=== PATIENT | male | born 1955 | race Caucasian/White ===

== ENCOUNTER → 2016-12-13 | Outpatient (CLI) | payer OTHER, BC ==
[~2016-12-13] MED LIST: ASCO100061 PO; ASPI325T4 PO; ATOR-24 PO; BISA1TAB15 PO; CLR10 PO; CYAN100020 PO; DOCU100C31 PO; FENO1TAB24 PO; FLUO20CA35 PO; GLUCTAB7 BT; INSUINJ12 SC; LOSA1TAB PO; METF1000 PO; METO-551 PO; MULTTAB58 PO; NVLGI SC; OMEG-112 PO; PROB1CAP54 PO; TRIA37.5 PO; VITA400C15 PO
[2016-12-14 06:01] LABS: ESTIMATED AVERAGE GLUCOSE 140 mg/dl; HA1C FLAG Normal (Normal)
== END | disposition home or self-care (01) ==
LOC: C.LABBFT 15:18
PROVIDERS: ATTEND Nurse Practitioner Family
DX: E11.9 Type 2 diabetes mellitus without complications (principal)

== ENCOUNTER → 2017-02-08 | Outpatient (CLI) | payer OTHER, BC ==
[2017-02-08 16:50] LABS: ALT/SGPT 28 U/L (12-78); AST/SGOT 15 U/L (15-37); BLOOD UREA NITROGEN 16 mg/dl (7-18); CALCIUM 8.9 mg/dl (8.5-10.1); CARBON DIOXIDE 29 mmol/L (21-32); CHLORIDE 102 mmol/L (98-107); CHOLESTEROL 107 mg/dl (0-200); GLUCOSE 93 mg/dl (70-99); POTASSIUM 3.8 mmol/L (3.5-5.1); SODIUM 139 mmol/L (136-145)
[2017-02-08 16:54] LABS: ALB/GLOB RATIO 1.1 (0.9-2); ALKALINE PHOSPHATASE 66 U/L (45-117); CHOLESTEROL/HDL RATIO 3.1; HDL CHOLESTEROL 35 mg/dl; LDL CHOLESTEROL CALCULATED 32 mg/dl; PROSTATE SPECIFIC ANTIGEN 0.194 ng/ml (0.000-4.000); TRIGLYCERIDES 201 mg/dl (0-150); VERY LOW DENSITY LIPOPROT CALC 40 mg/dl
[2017-02-08 17:24] LABS: RATIO 64.7 mcg/mg (0-30.0)
== END | disposition home or self-care (01) ==
LOC: C.LAB1850 15:28
PROVIDERS: ATTEND Internal Medicine
DX: Z00.00 Encounter for general adult medical examination without abnormal findings (principal); Z11.59 Encounter for screening for other viral diseases; E11.9 Type 2 diabetes mellitus without complications; Z12.5 Encounter for screening for malignant neoplasm of prostate

== ENCOUNTER → 2017-03-26 | Outpatient (CLI) | payer OTHER, BC ==
[2017-03-26 18:01] LABS: RATIO 119.4 mcg/mg (0-30.0)
[2017-03-26 18:08] LABS: BLOOD UREA NITROGEN 20 mg/dl (7-18); BUN/CREATININE RATIO 19.6 (10-20); CALCIUM 9.1 mg/dl (8.5-10.1); CARBON DIOXIDE 32 mmol/L (21-32); CHLORIDE 102 mmol/L (98-107); GLUCOSE 111 mg/dl (70-99); POTASSIUM 4.6 mmol/L (3.5-5.1); SODIUM 139 mmol/L (136-145)
[2017-03-27 06:09] LABS: ESTIMATED AVERAGE GLUCOSE 126 mg/dl; HA1C FLAG Normal (Normal)
== END | disposition home or self-care (01) ==
LOC: C.LABPBG 14:25
PROVIDERS: ATTEND Nurse Practitioner Family
DX: E11.9 Type 2 diabetes mellitus without complications (principal); R80.9 Proteinuria, unspecified

== ENCOUNTER → 2018-02-11 | Outpatient (CLI) | payer OTHER, BC ==
[~2018-02-11] MED LIST changes: +FENO145T24 PO; -FENO1TAB24 PO
--- NOTE | 2018-02-11 11:33 | DIAGNOSTIC IMAGING REPORT ---
R CLAVICLE CLINICAL HISTORY: Right clavicular pain. COMPARISON: None FINDINGS: No acute fracture is identified. There is apparent mild widening of the right acromioclavicular joint interval which measures 1.1 cm. This is a nonspecific finding. There is moderate arthritis of the right acromioclavicular and glenohumeral joints with subacromial spurring. IMPRESSION: 1. No acute fracture. 2. 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 3. Mild widening of the right AC joint interval which is nonspecific. This could be correlated with previous surgical/traumatic injury as well as point tenderness. Electronically signed by: Cesar Johnson M.D. 02/11/2018 11:32 AM Dictated Date/Time: 02/11/2018 11:29 AM
== END | disposition home or self-care (01) ==
LOC: C.RAD1850 10:55
PROVIDERS: ATTEND Internal Medicine
DX: M89.8X1 Other specified disorders of bone, shoulder (principal)

== ENCOUNTER → 2018-02-19 | Outpatient (CLI) | payer OTHER, BC ==
[~2018-02-19] MED LIST changes: +GADAVIST IV PRN
--- NOTE | 2018-02-19 10:38 | DIAGNOSTIC IMAGING REPORT ---
CHEST COMBO CLINICAL HISTORY: 62 years-old Male presenting with M89.8X1 Clavicle painATTN: R BRACHIAL PLEXUS, right clavicle pain, pain started eight months ago. TECHNIQUE: Multisequence, multiplanar MR imaging of the chest was performed before and after the administration of intravenous contrast. IV contrast: 14.5 mL of Gadavist. COMPARISON: None. FINDINGS: Localizer images: Unremarkable. Straightening of normal cervical lordosis with disc osteophyte complexes noted at nearly every level. No compression deformity. Normal MR appearance of the right brachial plexus. Fluid distends the right sternoclavicular joint. T1 hypointensity, T2 hyperintensity of the head of the right clavicle head. Minimal edema noted in the manubrium subjacent to the right sternoclavicular joint. Postcontrast imaging demonstrates intense enhancement of the synovium of the right sternoclavicular joint and surrounding soft tissues. Intense enhancement of the right clavicular head. The subjacent right rib is minimally involved. IMPRESSION: 1. Findings highly suspicious for septic arthritis of the right sternoclavicular joint. Differential considerations include inflammatory arthropathy, however, T1 hypointensity of the bone marrow in the right clavicular head remains most concerning for infection/osteomyelitis. 2. Normal MR examination of the right brachial plexus. 3. Degenerative changes of the cervical spine. The report will be called/faxed according to standard departmental protocol. Electronically signed by: Brayden Hurtado M.D. 02/19/2018 10:37 AM Dictated Date/Time: 02/19/2018 10:30 AM
== END | disposition home or self-care (01) ==
LOC: C.MRI 09:15
PROVIDERS: ATTEND Internal Medicine
DX: M89.8X1 Other specified disorders of bone, shoulder (principal)

== ENCOUNTER → 2018-03-11 | Outpatient (CLI) | payer OTHER, BC ==
[~2018-03-11] MED LIST changes: -GADAVIST IV PRN
[2018-03-11 18:45] LABS: ALBUMIN 3.9 gm/dl (3.4-5.0); ALT/SGPT 28 U/L (12-78); AST/SGOT 12 U/L (15-37); BLOOD UREA NITROGEN 20 mg/dl (7-18); CALCIUM 9.3 mg/dl (8.5-10.1); CARBON DIOXIDE 29 mmol/L (21-32); CHOLESTEROL 107 mg/dl (0-200); CREATININE 0.76 mg/dl (0.60-1.40); GLUCOSE 114 mg/dl (70-99); POTASSIUM 3.9 mmol/L (3.5-5.1); SODIUM 138 mmol/L (136-145)
[2018-03-11 18:51] LABS: ALKALINE PHOSPHATASE 64 U/L (45-117); LDL CHOLESTEROL CALCULATED 21 mg/dl; TOTAL PROTEIN 7.7 gm/dl (6.4-8.2)
[2018-03-11 19:03] LABS: CREATININE RANDOM URINE 24.1 mg/dl
== END | disposition home or self-care (01) ==
LOC: C.LABPBG 11:16
PROVIDERS: ATTEND Internal Medicine
DX: E78.5 Hyperlipidemia, unspecified (principal); Z12.5 Encounter for screening for malignant neoplasm of prostate; E11.9 Type 2 diabetes mellitus without complications